=== PATIENT | female | born 1970 | race Caucasian/White ===

== ENCOUNTER 2018-12-21 18:13 | Emergency (ER) | payer BC ==
[~2018-12-21] VITALS: Ht 162.6 cm; Wt 68.0 kg
[2018-12-21] MEDS ORDERED: CYMBALTA30 MG ORAL (18:20)
[2018-12-21] MEDS ORDERED: VALIUM2 MG ORAL (18:20)
--- NOTE | 2018-12-21 18:20 | NUR ---
ED Nurse Note: Patient walked into ED from home c/o headache for week. patient reports it is worst headache and patient reports she is worried. patient denies any injury. patient is alert awake x4 ambulatory steady gait, breathing unlabored and even, speaking in full sentences.
--- NOTE | 2018-12-21 19:09 | NUR ---
HAND-OFF: Report given to Julia JARAMILLO. endorsed all plan of care to Julia JARAMILLO
--- NOTE | 2018-12-21 19:10 | NUR ---
ED Nurse Note: ED Nurse Note: report received from CLINT Givens. pt went to have CT.
[2018-12-21 19:11] VITALS: BP 120/70
--- NOTE | 2018-12-21 19:11 | Emergency Room Report ---
History of Present Illness General Chief Complaint: Headache Source: Patient Present Illness HPI Patient is a 48-year-old female presents after increased headache. Patient had gradual onset of symptoms over the past 5 days. She reports having worsening pain in the mornings. She states that she had not had prior history of headaches in the past. She had prior history of gastric sleeve. She states that she been taking ibuprofen for headache without any relief. She denies any fever. She reports having some increased heartburn over the past few weeks. She denies any vomiting or diarrhea. She denies any neck stiffness. Allergies: Coded Allergies: No Known Allergies (Unverified , 12/21/18) Patient History Past Medical History: see triage record Last Menstrual Period: 12/19/18 Reviewed Nursing Documentation: PMH: Agreed; PSxH: Agreed Nursing Documentation-PMH Past Medical History: No History, Except For Review of Systems All Other Systems: negative except mentioned in HPI Physical Exam Vital Signs Date Time Temp Pulse Resp B/P (MAP) Pulse Ox O2 Delivery O2 Flow Rate FiO2 12/21/18 18:16 98.4 83 16 119/70 (86) 97 Room Air Sp02 EP Interpretation: reviewed, normal General Appearance: normal inspection, well appearing, no apparent distress, alert, GCS 15, non-toxic Head: atraumatic ENT: normal ENT inspection, hearing grossly normal, normal voice Neck: normal inspection, full range of motion, supple, no bony tend Respiratory: normal inspection, lungs clear, normal breath sounds, no respiratory distress, no retraction, no wheezing Cardiovascular #1: regular rate, rhythm, no edema Gastrointestinal: normal inspection, normal bowel sounds, non tender, soft, no guarding, no hernia Genitourinary: no CVA tenderness Musculoskeletal: normal inspection, back normal, normal range of motion Neurologic: normal inspection, alert, oriented x3, responsive, apartment locator III-XII nml as tested, motor strength/tone normal, speech normal Psychiatric: normal inspection, judgement/insight normal, mood/affect normal Medical Decision Making Last Vital Signs Date Time Temp Pulse Resp B/P (MAP) Pulse Ox O2 Delivery O2 Flow Rate FiO2 12/21/18 18:16 98.4 83 16 119/70 (86) 97 Room Air Greg Vazquez MD Dec 21, 2018 19:11
[2018-12-21] MEDS ORDERED: Metoclopramide 10mg/2ml Inj IVP ONE (19:15)
--- NOTE | 2018-12-21 19:20 | NUR ---
ED Nurse Note: returned back from CT
[2018-12-21 19:26] LABS: APPEARANCE,URINE CLEAR; BILIRUBIN, URINE NEGATIVE (NEGATIVE); COLOR,URINE PALE YELLOW; GLUCOSE, URINE (UA) NEGATIVE (NEGATIVE); KETONES,URINE NEGATIVE (NEGATIVE); LEUKOCYTE ESTERASE ,URINE NEGATIVE (NEGATIVE); NITRITE,URINE NEGATIVE (NEGATIVE); PH,URINE 5 (4.5-8.0); PROTEIN,URINE NEGATIVE (NEGATIVE); UROBILINOGEN,URINE NORMAL MG/DL (0.0-1.0)
[2018-12-21 19:35] LABS: ANION GAP 8 mmol/L (5-15); BLOOD UREA NITROGEN 28 mg/dL (7-18); CALCIUM 9.8 MG/DL (8.5-10.1); CARBON DIOXIDE 32 MMOL/L (21-32); CHLORIDE 102 MMOL/L (98-107); POTASSIUM 3.9 MMOL/L (3.5-5.1); SODIUM 141 MMOL/L (136-145)
[2018-12-21 19:40] LABS: ALANINE AMINOTRANSFERASE 26 U/L (12-78); ALBUMIN 3.7 G/DL (3.4-5.0); ALBUMIN/GLOBULIN RATIO 0.9 (1.0-2.7); ALKALINE PHOSPHATASE 73 U/L (46-116); ASPARTATE AMINO TRANSFERASE 19 U/L (15-37); BILIRUBIN,TOTAL 0.3 MG/DL (0.2-1.0)
[2018-12-21 19:46] LABS: BASOPHILS % (AUTO) 1.8 % (0.0-2.0); EOSINOPHILS % (AUTO) 4.4 % (0.0-3.0); HEMATOCRIT 46.5 % (37.0-47.0); HEMOGLOBIN 15.6 G/DL (12.0-16.0); LYMPHOCYTES % (AUTO) 29.7 % (20.0-45.0); MEAN CORPUSCULAR VOLUME 94 FL (80-99); NEUTROPHILS % (AUTO) 55.1 % (45.0-75.0); PLATELET COUNT 229 K/UL (150-450); RED BLOOD COUNT 4.95 M/UL (4.20-5.40); RED CELL DISTRIBUTION WIDTH 10.7 % (11.6-14.8); WHITE BLOOD COUNT 12.2 K/UL (4.8-10.8)
[2018-12-21] MEDS ORDERED: FIORICET1 EA ORAL (20:09)
[2018-12-21 20:19] VITALS: BP 128/70
--- NOTE | 2018-12-21 20:19 | NUR ---
ER DISCHARGE NOTE: Patient is cleared to be discharged per ERMD, pt is aox4, on room air, with stable vital signs. pt was given dc and prescription instructions, pt was able to verbalize understanding, pt id band and iv site removed without complications. pt is able to ambulate with steady gait. pt took all belongings.
--- NOTE | 2018-12-22 09:28 | Diagnostic Imaging Report ---
Indication: Headache Technique: Contiguous 5 mm thick transaxial imaging of the head obtained in a Siem[employer] Sensation [address] scanner. Soft tissue and bone windows generated. Automatic Exposure Control was utilized. Total Dose length Product (DLP): 1389.[address] Dose Index Volume (CTDIvol): 70.38 mGy Comparison: none Findings: The size and configuration of the cortical sulci, basal cisterns, and ventricles are within normal limits for age. There is no mass effect, midline shift, or edema identified. There is no evidence of acute hemorrhage or abnormal intra-axial or extra-axial fluid collections. The bones and soft tissues are unremarkable. There is minimal mucosal thickening in the ethmoid region. Impression: No mass effect, edema or acute bleed. Mild sinusitis The CT scanner at [facility] is accredited by the [employer] and the scans are performed using dose optimization techniques as appropriate to a performed exam including Automatic Exposure control.
== END 2018-12-21 20:20 | disposition home or self-care (01) ==
LOC: EMR 20:15
DX: R51 Headache (principal); R12 Heartburn
CPT/HCPCS: 36415; 70450; 80053; 80307; 81003; 81025; 85025; 85610; 85730; 96374; 99284; J2765; J7040